=== PATIENT | female | born 1970 | race Two or more races ===

== ENCOUNTER 2021-07-06 20:01 | Emergency (ER) | payer OTHER ==
[~2021-07-06] VITALS: Ht 157.5 cm; Wt 67.1 kg
[~2021-07-06 20:01] MED LIST: CALTRATE 600600 MG PO; KETO10TA2 PO; ORPH100T PO
[2021-07-06] MEDS ORDERED: CIPRO500 MG PO (21:59)
[2021-07-06] MEDS ORDERED: CORTISPORIN EAR10 M1 OT (21:59)
== END 2021-07-06 22:15 | disposition home or self-care (01) ==
LOC: ER 20:01
DX: H60.62 Unspecified chronic otitis externa, left ear (principal)

== ENCOUNTER 2024-11-20 15:15 | Emergency (ER) | payer OTHER ==
[~2024-11-20] VITALS: Ht 157.5 cm; Wt 61.7 kg
[~2024-11-20 15:15] MED LIST changes: +CIPRO500 MG PO; +CORTISPORIN EAR10 M1 OT
[2024-11-20] MEDS ORDERED: KETOROLAC TROMETHAMINE 30 MG VIAL IM ONE (16:30)
[2024-11-20] MEDS ORDERED: ORPHENADRINE CITRATE 30 MG/ML AMPUL IM ONE (16:30)
[2024-11-20] MEDS ORDERED: KETOROLAC TROMETHAMINE 60 MG VIAL IM ONE (17:21)
[2024-11-20] MEDS ORDERED: ORPHENADRINE CITRATE 30 MG/ML AMPUL ONE (17:21)
== END 2024-11-20 17:50 | disposition home or self-care (01) ==
LOC: ER 15:18
DX: M54.9 Dorsalgia, unspecified (principal)

== ENCOUNTER 2025-10-23 11:15 | Inpatient (IN) | payer OTHER ==
[~2025-10-23] VITALS: Ht 157.5 cm; Wt 61.7 kg
[2025-10-23 12:51] VITALS: BP 140/86
[2025-10-23] MEDS ORDERED: ATACAND4 MG PO (12:51)
[2025-10-30] MEDS ORDERED: POVIDONE-IODINE 118 ML BOTT TOP ONE (06:45)
[2025-10-30] MEDS ORDERED: CEFAZOLIN SODIUM 1,000 MG VIAL ONE ×2 (06:52→11:48)
[2025-10-30] MEDS ORDERED: EPINEPHRINE HCL/PF 1 MG/ML AMPUL ONE (07:38)
[2025-10-30] MEDS ORDERED: ONDANSETRON HCL 2 MG/ML VIAL IV PRN (09:15)
[2025-10-30] MEDS ORDERED: MORPHINE SULFATE 4 MG/ML VIAL IV PRN (09:15)
[2025-10-30] MEDS ORDERED: RINGERS SOLUTION,LACTATED 1,000 ML IV SCH (09:15)
[2025-10-30] MEDS ORDERED: CEFAZOLIN SODIUM 1,000 MG VIAL IV SCH (12:00)
[2025-10-30 12:52] LABS: BASO % 0.5 % (0.1-1.2); EOS # 0.06 (0.04-0.54); EOS % 0.8 % (0.7-7.0); LYMPH # 3.68 (1.18-3.74); LYMPH % 46.3 % (19.3-53.1); MEAN PLATELET VOLUME 11.50 fl (9.4-12.4); MONO # 0.53 (0.24-0.82); MONO % 6.7 % (4.7-12.5); NEUT # 3.63 (1.56-6.13); NEUT % 45.7 % (34.0-71.1); RED CELL DISTRIBUTION WIDTH 13.2 % (11.6-14.4)
[2025-10-30 12:55] VITALS: BP 112/76
[2025-10-30 16:06] VITALS: BP 130/82
[2025-10-31] VITALS: BP 111/67
[2025-10-31] MEDS ORDERED: IBU800 MG PO (06:51)
[2025-10-31] MEDS ORDERED: NEURONTIN300 MG PO (06:51)
[2025-10-31] MEDS ORDERED: SURFAK240 M1 PO (06:52)
[2025-10-31] MEDS ORDERED: SULFAMETHOXAZOL20 ML PO (06:56)
[2025-10-31 08:49] VITALS: BP 136/78
[2025-10-31] MEDS ORDERED: CANDESARTAN CILEXETIL 8 MG TAB PO SCH (09:00)
[2025-10-31] MEDS ORDERED: ENOXAPARIN SODIUM 40 MG/0.4 ML SYRINGE SUBCUTANEO SCH (09:00)
== END 2025-10-31 13:57 | disposition home or self-care (01) | DRG 743 ==
LOC: O/R 10-30 06:00 → OB/GYN 10-30 06:00 → SURH 10-30 11:15 → OB/GYN 10-31 13:57
PROVIDERS: ADMIT Obstetrics & Gynecology Gynecology; ATTEND Obstetrics & Gynecology Gynecology
PROC: 0UT97ZZ Resection of Uterus, Via Natural or Artificial Opening (ICD-10-PCS; principal; 2025-10-30)
PROC: 0JQC0ZZ Repair Pelvic Region Subcutaneous Tissue and Fascia, Open Approach (ICD-10-PCS; 2025-10-30)
PROC: 0USG0ZZ Reposition Vagina, Open Approach (ICD-10-PCS; 2025-10-30)
DX: N84.0 Polyp of corpus uteri (principal); N81.2 Incomplete uterovaginal prolapse